=== PATIENT | female | born 1980 | race Caucasian/White ===

== ENCOUNTER 2020-06-18 11:08 | Emergency (ER) | payer OTHER, SELFPAY ==
--- NOTE | 2020-06-18 11:19 | ED.SKABFB ---
HPI - Skin/Abscess/Foreign Bdy General Chief complaint: Skin/Abscess/Foreign Body Stated complaint: rash Time Seen by Provider: 06/18/20 11:19 Source: patient and RN notes reviewed History of Present Illness HPI narrative: Patient is a 40-year-old female who presents the urgent care with complaints of a rash . Patient states that she did some yard work last week but did not have any areas until Thursday. Patient denies of any new creams, detergents, foods, lotions. Patient denies of anyone else in the household with the rash. Patient has used calamine, IV scrub, Benadryl, and other irrn-mhu-mbveexq creams without any relief. Patient denies of any shortness of breath or difficulty swallowing. No other acute complaints. No acute distress noted. Patient read the plan of care. Related Data Allergies Allergy/AdvReac Type Severity Reaction Status Date / Time Penicillins AdvReac Rash Verified 06/18/20 11:25 Review of Systems Review of Systems: Narrative: CONSTITUTIONAL: Denies fever, chills, or sweats. EYES: Denies visual changes, redness, or discharge. ENT: Denies rhinorrhea, congestion, sore throat, or otalgia. CARDIOVASCULAR: Denies chest pain, palpitations, or edema. RESPIRATORY: Denies cough or dyspnea. GASTROINTESTINAL: Denies abdominal pain, nausea, vomiting, or diarrhea. GENITOURINARY: Denies dysuria or hematuria. SKIN: Reports of diffuse itchy rash MUSCULOSKELETAL: Denies back pain, joint pain, or myalgia. NEUROLOGIC: Denies headache, numbness, or weakness. All other systems reviewed are negative, except as documented in HPI. PMFSH Comments At the time of my signature, I reviewed and agree with the nursing past medical, surgical, social, and family history. There is no relevant family history pertinent to the patient complaint. Exam Narrative: Exam Narrative: GENERAL: This is a well-nourished, well-developed patient, in no apparent distress. HEAD: normocephalic, atraumatic. EYES: PERRL. Sclera clear/white. Vision is grossly intact. EARS: Mildly edematous and erythemic right external ear, left external ears normal NOSE: External nose normal with no obvious nasal discharge, nares without redness, no rhinorrhea. THROAT: Mucous membranes moist, posterior pharynx clear. NECK: Neck supple SKIN: Diffuse pruritic urticaria noted to the right neck and trunk with multiple pinpoint insect bites noted to bilateral lower extremities. Warm, intact with no suspicious lesions or rash, good texture and turgor. NEURO: awake, alert, and oriented to person, place and time. There were no obvious focal neurologic abnormalities. EXTREMITIES: No clubbing, cyanosis, or edema. Course Vital Signs Vital signs: Vital Signs Temperature 97.9 F 06/18/20 11:20 Pulse Rate 96 06/18/20 11:20 Respiratory Rate 20 06/18/20 11:20 Blood Pressure 144/92 H 06/18/20 11:20 Pulse Oximetry 100 06/18/20 11:20 Temperature 97.9 F 06/18/20 11:20 Pulse Rate 96 06/18/20 11:20 Respiratory Rate 20 06/18/20 11:20 Blood Pressure 144/92 H 06/18/20 11:20 Pulse Oximetry 100 06/18/20 11:20 Reviewed-patient is informed that they may have pre-hypertension or hypertension based on a blood pressure reading in the department. I recommend the patient call the primary care provider listed on their discharge instructions or a physician of their choice this week to arrange follow-up for further evaluation of possible pre-hypertension or hypertension. MDM - Skin/Abscess/Foreign Bdy MDM Narrative Medical decision making narrative: Advised the patient to use an oral antihistamine daily such as Claritin or Zyrtec and use Benadryl prior to bedtime for itch. Complete steroid regimen as prescribed. Make sure to eat and drink with the medication. Use prescription cream to the affected areas as directed, avoiding the groin/underarms/face. Be aware that hot showers/baths will exacerbate the itching and redness. May use TecNu scrub [id number] daily for
[2020-06-18 11:20] VITALS: BP 144/92; PULSE 96; RESP 20; TEMP 36.6; O2SAT 100
== END 2020-06-18 11:37 | disposition home or self-care (01) ==
PROVIDERS: Emergency Provider Nurse Practitioner Family
DX: L50.9 Urticaria, unspecified (principal)
CPT/HCPCS: 99213; G0463

== ENCOUNTER 2021-12-23 20:13 | Emergency (ER) | payer SELFPAY ==
--- NOTE | ~2021-12-23 | CT_ITS ---
EXAMINATION: CT brain wo con INDICATION: Left arm hemiparesis COMPARISON: None TECHNIQUE: Standard unenhanced head CT. The dose-length product (DLP) was 605.33 mGy-cm. The mA was a djusted according to patient size. Iterative reconstruction technique was employed. FINDINGS: There is no acute intraparenchymal hemorrhage. No evidence of mass lesion. No evidence of a cute infarction. There is mild periventricular and subcortical hypodensity probably related to small vessel ischemic disease. There is mild prominence of the sulci and ventricles related to cerebral atr ophy. Intracranial calcified cerebral atherosclerosis is noted. There are no extra-axial collections. There is no mass effect or midline shift. The orbits and soft tissues are unremarkable. There is mil d mucosal thickening of the left sphenoid sinus. IMPRESSION: 1. No acute intracranial abnormality. 2. Age related findings. As per stroke protocol, I called these results to the Emergency Department, and discussed with Dr. Lea Giles MD at 2039 hours on 12/23/2021. Reviewed, dictated and finalized at location F. NICAL SUPPORT AGENT IMPRESSION: 1. No acute intracranial abnormality. 2. Age related findings. As per stroke protocol, I called these results to the Emergency Department, and discussed with Dr. Raheel Giles MD at 2039 hours on 12/23/2021.
[2021-12-23 20:15] VITALS: BP 154/94; PULSE 74; RESP 20; TEMP 36.4; O2SAT 95
--- NOTE | 2021-12-23 20:17 | ECG_ITS ---
Measurements Intervals [place] Rate: 89 P: 42 ID: 140 QRS: 55 QRSD: 84 T: 56 QT: 359 QTc: 438 Interpretive Statements SINUS RHYTHM INCOMPLETE RIGHT BUNDLE BRANCH BLOCK MINIMAL Q WAVES- INFERIOR LEADS BORDERLINE ECG Electronically Signed On 12-23-2021 21:17:35 GAME ROOM ATTENDANT by Arvind Jackson D.O.
--- NOTE | 2021-12-23 20:18 | ED.NEUROSD ---
HPI - Neuro Symptoms/Deficit General Chief Complaint: Neuro Symptoms/Deficit Stated Complaint: chest pain, unable to move or feel L arm Source: patient, family and RN notes reviewed Mode of arrival: ambulatory Limitations: no limitations History of Present Illness Onset (ago): minute(s) (30) Timing confirmed by: spouse Location: left face History of same: No Severity: severe Quality: numb and improving Relieving factors: time Exacerbating factors: none Context: sudden onset On Anticoagulants: No Associated symptoms: chest pain (tightness) and shortness of breath (gone ) Treatments Prior to Arrival: none Related Data Home Medications Medication Instructions Recorded Confirmed No Home Medications 12/23/21 12/23/21 Allergies Allergy/AdvReac Type Severity Reaction Status Date / Time Penicillins AdvReac Rash Verified 06/18/20 11:25 Review of Systems Review of Systems: All systems reviewed & are unremarkable except as noted in HPI and below Constitutional: Constitutional: Denies chills and Denies fever(s) Cardiovascular: Cardiovascular: Denies rapid heart rate and Denies radiating jaw, neck or arm pain Respiratory: Respiratory: Denies cough and Denies wheezing Gastrointestinal: Gastrointestinal: Reports diarrhea, Reports nausea and Reports vomiting Genitourinary: Genitourinary: Denies nocturia and Denies dysuria PMFSH Past Medical History Medical History (Updated 12/23/21 @ 21:57 by Raheel Giles MD) Anxiety Surgical History Surgical History (Updated 12/23/21 @ 21:06 by Raheel Giles MD) H/O mitral valve repair Social History Social History (Updated 12/23/21 @ 21:06 by Raheel Giles MD) Smoking packs per day: 0.5 Smoking cigarettes per day: 10.0 Tobacco type: cigarettes Alcohol use details: no current alcohol use Substance use: never Exam Const: General: healthy appearing, no acute distress and alert Nutritional Appearance: well nourished Orientation/consciousness: patient oriented x3 and No confusion HENMT: Head: normal to inspection Ears: external ears normal Face and sinus: normal facial exam Mouth: Yes moist mucous membranes Eyes: Conjunctivae: conjunctivae normal Pupils: Equal, round and reactive pupils present EOM: EOMs intact bilaterally Neck: Neck: normal visual inspection Resp: Effort & Inspection: normal respiratory effort Auscultation: clear to auscultation bilaterally Cardio: Rate: regular rate Rhythm: regular rhythm GI: GI Palp: Yes Soft to palpation and No Tenderness to palpation present (GI) Auscultation: normal bowel sounds Back/Spine/Pelvis: Cervical Spine: cervical ROM normal Thoracic/Lumbar Spine: thoraco-lumbar ROM normal Skin: General skin exam: normal color Rashes: no rashes Neuro: General: patient oriented x3 Cranial nerves: Yes CN's II-XII intact bilaterally, Yes Facial sensation intact/muscles of mastication intact, Yes Equal, round and reactive pupils present, Yes Bilaterally intact EOM present, Yes Normal facial strength present, Yes Symmetric palate elevation present and Yes Normal hearing present Cognition (Neuro): normal cognition Speech: normal speech Gait exam (Neuro): Normal gait present Motor exam (neuro): Abnormal motor strength present left upper extremity flexion 2 / 5, extension 2 / 5 and opposition 2 / 5 and Motor abnormalites present ( left upper extremity ataxia) Sensory Exam: Upper extremity sensory exam abnormal left pin-prick abnormal in the entire distribution and decreased Coordination: No tuyezm-mf-eggo test normal ( ataxic on the left) and oemq-ct-mjud test normal Pupils: Normal pupillary reactivity/response: bilateral Extrem: General: normal to inspection and no clubbing, cyanosis or edema Psych: Appearance: grossly normal and well kempt Mental Status: mental status grossly normal Affect: Anxious affect present Attitude: cooperative Thought content: Yes Normal thought content present Course Course
--- NOTE | 2021-12-23 20:20 | PC.NURSE ---
2014 Pt brought back to ER via w/c, hx obtained and stat stroke protocol initiated. See protocol paperwork in pt chart.
[2021-12-23 20:25] VITALS: PULSE 74
[2021-12-23 20:27] LABS: Basophils Absolute Auto 0.05 K/mm3 (0.00-0.10); Basophils Percent Auto 0.4 % (0.0-1.0); Eosinophils Absolute Auto 0.21 K/mm3 (0.02-0.50); Eosinophils Percent Auto 1.5 % (1.0-6.0); Hematocrit 38.7 % (35.0-49.0); Hemoglobin 13.1 g/dL (12.0-15.0); Immature Granulocyte Absolute 0.04 K/mm3 (0.00-0.00); Immature Granulocyte Percent A 0.3 % (0.0-0.0); Lymphocytes Absolute Auto 4.83 K/mm3 (1.10-4.50); Mean Corpuscular HGB Conc 33.9 g/dL (32.0-36.0); Mean Corpuscular Hemoglobin 31.7 pg (27.0-31.0); Mean Corpuscular Volume 93.7 fL (78.0-102.0); Mean Platelet Volume 10.4 fl (9.2-11.8); Monocytes Absolute Auto 0.97 K/mm3 (0.10-0.90); Monocytes Percent Auto 6.8 % (2.0-11.0); Neutrophils Absolute Auto 8.1 K/mm3 (1.7-7.2); Platelet Count Result 311 K/mm3 (150-420); Red Blood Count 4.13 M/mm3 (4.20-5.40); White Blood Count 14.2 K/mm3 (4.8-10.8)
[2021-12-23 20:41] LABS: Partial Thromboplastin Time 25.5 SEC (23.90-30.70); Prothrombin Time 10.2 Seconds (9.50-12.10)
--- NOTE | 2021-12-23 20:45 | PC.NURSE ---
Pt requests [facility] for neurology, states her operations forester is at [facility], calls initiated per protocol.
[2021-12-23 20:46] LABS: Alanine Aminotransferase 20 U/L (14-59); Albumin Level 3.8 g/dL (3.4-5.0); Alkaline Phosphatase 84 U/L (46-116); Anion Gap 10 mmol/L (8-16); Aspartate Amino Transferase 12 U/L (15-37); Bilirubin,Total 0.2 mg/dL (0.00-1.00); Blood Urea Nitrogen 7 mg/dL (7-18); Carbon Dioxide 25 mmol/L (21-32); Chloride 102 mmol/L (98-108); Estimated Glomerular Filt Rate > 60; Glucose 97 mg/dL (70-99); Osmolality Calculated 282 mOsm/kg (285-295); Potassium 2.9 mmol/L (3.5-5.1); Sodium 137 mmol/L (136-145); Total Protein 7.3 g/dL (6.4-8.2); Troponin I 4.5 ng/L (0.00-60.4)
--- NOTE | 2021-12-23 21:00 | PC.NURSE ---
ERP spoke c neuro Caio Eckert at [facility] who accepts for transfer, then call made back to Dr Eckert per Dr Giles stating pts sxs have resolved and improved, orders to put TPA on hold for now and give ASA as per protocol. Pt will go to neuro bed and will await callback for reports and bed assignment at this time. Pt informed on POC and wait times, VSS, no c/o at this time.
[2021-12-23] MEDS: ASPIRIN 81 MG CHEWABLE TABLET 324 MG PO (21:08)
[2021-12-23 21:15] LABS: SARS-CoV-2 Ag Negative (Negative)
[2021-12-23 21:17] LABS: Add Urine Microscopic? YES; Appearance Urine Clear (Clear); Bilirubin Urine Negative (Negative); Blood Urine 2+ (Negative); Color Urine Light Yellow (Yellow); Glucose Urine UA Negative (Negative); Ketones Urine Negative (Negative); Leukocyte Esterase Ur Trace LEU/UL (Negative); Nitrate Urine Negative (Negative); Protein Urine Negative (Negative); Specific Grav Ur <= 1.005 (1.010-1.020); Urobilinogen Urine 0.2 mg/dL (0.2-1.0); pH Urine 6.5 (5.0-8.0)
[2021-12-23 21:22] LABS: Bacteria Urine None seen /hpf; RBC Urine 0-2 /hpf (0-2); Squamous Epithelial Cell Urine None seen /hpf (Few); WBC Urine 0-3 /hpf (0-3)
--- NOTE | 2021-12-23 21:26 | PC.NURSE ---
Call placed to [facility] team RN Yancy, report of negative covid given to staff, will find bed placement for pt. and awaiting call back for assignment.
[2021-12-23 21:31] LABS: Amphetamine Screen Urine Negative (Negative); Barbiturate Screen Urine Negative (Negative); Benzodiazepines Screen Urine Negative (Negative); Cannabinoid Screen Urine Negative (Negative); Cocaine Screen Urine Negative (Negative); Methadone Screen Urine Negative (Negative); Opiate Screen Urine Negative (Negative); Phencyclidine Screen Urine Negative (Negative)
[2021-12-23 21:32] VITALS: BP 133/89; PULSE 86; RESP 18; TEMP 36.3; O2SAT 99
[2021-12-23] MEDS: POTASSIUM BICARBONATE 25 MEQ TABEF 50 MEQ PO (22:03)
[2021-12-23 22:35] VITALS: PULSE 82
--- NOTE | 2021-12-23 22:49 | PC.NURSE ---
Call placed back to [facility], no estimated time on bed availability for transfer. Pt talking on cell phone, VSS. No deficits noted at this time.
[2021-12-23 22:50] VITALS: BP 119/93; PULSE 85; RESP 20; O2SAT 98
--- NOTE | 2021-12-23 22:59 | PC.NURSE ---
Pt to be made ER Hold until bed is available at [facility]. Call placed to floor, awaiting call back for bed to 2nd floor for ER Hold placement.
--- NOTE | 2021-12-23 23:17 | PC.NURSE ---
Pt to go to [facility] for ER Hold. Report to 2nd floor nurses given.
--- NOTE | 2021-12-23 23:40 | PC.NURSE ---
Pt taken to [facility] via w/c for ED Hold, report given to ARIANNE Limon
[2021-12-24] VITALS: BP 121/78; PULSE 78; RESP 16; TEMP 36.8; O2SAT 97
--- NOTE | 2021-12-24 00:15 | PC.NURSE ---
Patient was brought to the 2nd floor, room 208 at 2345. Patient was oriented to the room and the floor. Vitals and nursing assessment were completed as follows: Cardiovascular - regular heart rate (78). in sinus rhythm. Skin is warm and dry with no edema, cyanosis, or pallor. Peripheral pulses are palpable, strong, and regular. Normal heart sounds with auscultation. GI - abdomen is soft and non-distended. Active bowel sounds. Patient reported a BM today. No nausea or vomiting at this time. - urine is clear and yellow. Patient voids without difficulty. HEENT - full range of motion with head and neck. Eyes, ears, nose, throat and mouth without symptoms. Patient wears glasses for reading and watching TV. Integumentary - Skin is intact with no rashes/lesions/wounds/pressure ulcers. Skin is warm, dry, normal color and turgor. Musculoskeletal - normal strength with full range of motion. Reproductive - no abnormal draining, edema or discoloration. Respiratory - airway patent. Respirations are regular rate (16), non-labored, with clear breath sounds bilaterally.
--- NOTE | 2021-12-24 01:00 | PC.NURSE ---
Patient rounding completed. Patient is resting comfortably in bed, and stated that she felt well, was not in any pain, and did not need anything at this time.
[2021-12-24 04:00] VITALS: BP 103/73; PULSE 79; RESP 16; TEMP 36.8; O2SAT 95
[2021-12-24 04:24] VITALS: PULSE 81
[2021-12-24 05:27] LABS: Anion Gap 8 mmol/L (8-16); Blood Urea Nitrogen 9 mg/dL (7-18); Calcium 8.5 mg/dL (8.5-10.1); Carbon Dioxide 25 mmol/L (21-32); Chloride 104 mmol/L (98-108); Estimated CRCL calculation 86 ml/min; Estimated Glomerular Filt Rate > 60; Glucose 102 mg/dL (70-99); Osmolality Calculated 282 mOsm/kg (285-295); Potassium 3.5 mmol/L (3.5-5.1); Sodium 137 mmol/L (136-145)
[2021-12-24 07:45] VITALS: BP 114/75; PULSE 78; RESP 16; TEMP 36.6; O2SAT 97
--- NOTE | 2021-12-24 07:45 | PC.NURSE ---
Neuro checks WNL. Protective Services Case Worker strong and equal. Push bilateral feet strong and equal. Pupils equal and reactive.
--- NOTE | 2021-12-24 08:31 | PC.NURSE ---
call from [facility] for updated vitals and bed assignment. call placed to 2nd floor charge station.
--- NOTE | 2021-12-24 08:34 | PC.NURSE ---
[facility] transfer line just called with bed # for patient, Going to [id number]. Report # [phone].
--- NOTE | 2021-12-24 08:50 | PC.NURSE ---
Report called to Dolores at [facility].
--- NOTE | 2021-12-24 08:55 | PC.NURSE ---
[facility] contacted for transfer, not available ACLS rigs for transfer. [facility] contacted, page out for ACLS truck.
[2021-12-24 09:30] VITALS: BP 114/75; PULSE 78; RESP 16; TEMP 36.6; O2SAT 97
--- NOTE | 2021-12-24 09:30 | PC.NURSE ---
EMS here to transport patient to [facility]. All belongings gathered and sent with patient. Patient transferred to stretcher with sba. Left floor via stretcher accompanied by EMS. Report given to EMS. Transfer paperwork given to EMS. Patients given room number for [facility]. No further questions at this time. IV site left in place for transfer.
== END 2021-12-24 09:30 | disposition short-term general hospital (02) ==
LOC: CHSED 23:30 → CHS2ND 23:39
PROVIDERS: Emergency Provider Emergency Medicine
DX: E87.6 Hypokalemia (principal); G45.9 Transient cerebral ischemic attack, unspecified; Z20.822 Contact with and (suspected) exposure to COVID-19; F17.200 Nicotine dependence, unspecified, uncomplicated
CPT/HCPCS: 36415; 70450; 80048; 80053; 80307; 81001; 82948; 84484; 85025; 85610; 85730; 87426; 93005; 99285; A9270; C9803